=== PATIENT | male | born 1955 | race Caucasian/White ===

== ENCOUNTER 2023-07-24 10:05 | Outpatient (CLI) | payer BC | END 2023-07-24 10:06 | disposition home or self-care (01) | LOC: BICRAD 10:05 | PROVIDERS: ATTEND Student in an Organized Health Care Education/Training Program | DX: E11.621 Type 2 diabetes mellitus with foot ulcer (principal); L97.519 Non-pressure chronic ulcer of other part of right foot with unspecified severity ==

== ENCOUNTER 2023-08-04 07:21 | Outpatient (CLI) | payer BC ==
[2023-08-04] MEDS ORDERED: Magnevist 469MG/ML 20 ML VIAL ONE (14:16)
== END 2023-08-04 07:22 | disposition home or self-care (01) ==
LOC: BICMRI 07:21
PROVIDERS: ATTEND Student in an Organized Health Care Education/Training Program
DX: E11.621 Type 2 diabetes mellitus with foot ulcer (principal); L97.519 Non-pressure chronic ulcer of other part of right foot with unspecified severity
CPT/HCPCS: 82565; A9579